=== PATIENT | female | born 1965 | race Caucasian/White ===

== ENCOUNTER 2018-04-07 15:54 | Emergency (ER) | payer OTHER ==
[2018-04-07 16:49] LABS: ADD MAN DIFF? NO
[2018-04-07 16:52] LABS: BASOPHILS % 0.5 % (0.0-2.0); EOSINOPHILS # 0.1 10^3/ul (0.0-0.5); EOSINOPHILS % 1.8 % (0.0-7.0); HEMATOCRIT 38.3 % (37.0-47.0); HEMOGLOBIN 12.8 g/dl (12.0-16.0); LYMPHOCYTES # 1.6 10^3/ul (0.8-2.9); LYMPHOCYTES % 28.1 % (15.0-51.0); MEAN CORPUSCULAR HEMOGLOBIN 30.3 pg (29.0-33.0); MEAN CORPUSCULAR HGB CONC 33.4 g/dl (32.0-37.0); MEAN CORPUSCULAR VOLUME 90.8 fl (82.0-101.0); MEAN PLATELET VOLUME 12.4 fl (7.4-10.4); MONOCYTE # 0.5 10^3/ul (0.3-0.9); MONOCYTES % 9.4 % (0.0-11.0); NEUTROPHIL # 3.3 10^3/ul (1.6-7.5); NEUTROPHILS % 59.8 % (39.0-77.0); PLATELET COUNT 216 10^3/UL (140-415); RED BLOOD COUNT 4.22 10^6/ul (4.20-5.40); RED CELL DISTRIBUTION WIDTH 13.2 % (11.5-14.5)
[2018-04-07 16:52] LABS: WHITE BLOOD COUNT 5.5 10^3/ul (4.8-10.8)
[2018-04-07] MEDS: morphine 4 MG/ML VIAL IV (16:54)
[2018-04-07] MEDS: ONDANSETRON 4 MG INJ IV (16:54)
[2018-04-07] MEDS: SOD CHLORIDE 0.9% 1,000 ML IV (16:54)
[2018-04-07 17:09] LABS: ALANINE AMINOTRANSFERASE 39 IU/L (13-69); ALBUMIN 4.2 g/dl (3.3-4.9); ALBUMIN/GLOBULIN RATIO 1.13; ALKALINE PHOSPHATASE 89 IU/L (42-121); ANION GAP 12 (8-16); ASPARTATE AMINO TRANSFERASE 31 IU/L (15-46); BILIRUBIN,INDIRECT 0.1 mg/dl (0-1.1); BILIRUBIN,TOTAL 0.1 mg/dl (0.2-1.3); BLOOD UREA NITROGEN 16 mg/dl (7-20); CALCIUM 9.6 mg/dl (8.4-10.2); CARBON DIOXIDE 25 mmol/L (21-31); CHLORIDE 107 mmol/L (97-110); CREATININE 0.88 mg/dl (0.44-1.00); GLUCOSE 139 mg/dl (70-220); LIPASE 174 U/L (23-300); POTASSIUM 4.1 mmol/L (3.5-5.1); SODIUM 140 mmol/L (135-144); TOTAL PROTEIN 7.9 g/dl (6.1-8.1)
[2018-04-07] MEDS: LIDOCAINE 1% (MDV) 10 ML INJ INJ (17:13)
[2018-04-07] MEDS: LIDOCAINE 1% (MDV) 20 ML INJ INJ (17:41)
[2018-04-07] MEDS: SOD CHLORIDE 0.9% 100 ML (18:09)
[2018-04-07] MEDS: IOHEXOL 300MG/ML 150 ML BTL (18:10)
== END 2018-04-07 20:27 | disposition home or self-care (01) ==
LOC: E/R 15:54
DX: S81.011A Laceration without foreign body, right knee, initial encounter (principal); S16.1XXA Strain of muscle, fascia and tendon at neck level, initial encounter; S49.92XA Unspecified injury of left shoulder and upper arm, initial encounter; S60.512A Abrasion of left hand, initial encounter; M54.9 Dorsalgia, unspecified; V49.40XA Driver injured in collision with unspecified motor vehicles in traffic accident, initial encounter
CPT/HCPCS: 12002; 71045; 72125; 73030; 73130-LT; 73562; 74177; 80053; 81025; 83690; 85025; 96374; 96375; 99285-25